=== PATIENT | male | born 1970 | race Caucasian/White ===

== ENCOUNTER → 2017-01-25 | Outpatient (CLI) | payer OTHER ==
[~2017-01-25] MED LIST: FLUO20CA35 PO; LAMO200T38 PO; LISI-725 PO; METO50TA7 PO; PRAV20TA PO; PRLSR20 PO
[2017-01-25 13:05] LABS: BASO % 0.4 %; BASO ABS # 0.02 K/uL (0-0.2); COMPLETE YES; EOS % 1.7 %; HEMATOCRIT 43.5 % (42-52); IG% 0.2 %; LYMPH % 20.3 %; LYMPH ABS # 0.98 K/uL (1.2-3.4); MEAN CELL VOLUME 95.2 fL (80-100); MEAN CORPUSCULAR HEMOGLOBIN 33.5 pg (25-34); MEAN CORPUSCULAR HGB CONC 35.2 g/dl (32-36); MEAN PLATELET VOLUME 10.2 fL (7.4-10.4); MONO % 13.7 %; NEUT % 63.7 %; PLATELET COUNT 177 K/uL (130-400); RED BLOOD COUNT 4.57 M/uL (4.7-6.1); WHITE BLOOD COUNT 4.82 K/uL (4.8-10.8)
[2017-01-25 13:14] LABS: ESTIMATED AVERAGE GLUCOSE 94 mg/dl; HA1C FLAG Normal (Normal)
[2017-01-25 13:32] LABS: ALT/SGPT 35 U/L (12-78); AST/SGOT 29 U/L (15-37); BLOOD UREA NITROGEN 10 mg/dl (7-18); BUN/CREATININE RATIO 11.3 (10-20); CALCIUM 8.8 mg/dl (8.5-10.1); CARBON DIOXIDE 24 mmol/L (21-32); CHLORIDE 102 mmol/L (98-107); CHOLESTEROL 217 mg/dl (0-200); CREATININE 0.87 mg/dl (0.60-1.40); GLUCOSE 95 mg/dl (70-99); POTASSIUM 4.1 mmol/L (3.5-5.1); SODIUM 136 mmol/L (136-145); TRIGLYCERIDES 334 mg/dl (0-150); VERY LOW DENSITY LIPOPROT CALC 67 mg/dl
[2017-01-25 13:35] LABS: ALB/GLOB RATIO 0.8 (0.9-2); ALKALINE PHOSPHATASE 103 U/L (45-117); CHOLESTEROL/HDL RATIO 2.9; HDL CHOLESTEROL 75 mg/dl
== END | disposition home or self-care (01) ==
LOC: C.LABSPEC 12:21
PROVIDERS: ATTEND Internal Medicine
DX: Z00.01 Encounter for general adult medical examination with abnormal findings (principal); E78.5 Hyperlipidemia, unspecified; R73.9 Hyperglycemia, unspecified; I10 Essential (primary) hypertension

== ENCOUNTER → 2017-10-05 | Outpatient (CLI) | payer OTHER ==
[~2017-10-05] MED LIST changes: +LAMO200T35 PO; -LAMO200T38 PO; -METO50TA7 PO; +METO50TA8 PO
--- NOTE | 2017-10-05 18:01 | EXERCISE STRESS ECHO ---
*NOTICE TO RECEIVING DEMOCRAT AGENCY This information is strictly Confidential and protected under [place] law. [place] law prohibits you from making any further disclosure of this information unless further disclosure is expressly permitted by the written consent of the person to whom it pertains or is authorized by law. A general authorization for the release of medical or other information is not sufficient for this purpose. Hospital accepts no responsibility if the information is made available to any other person, INCLUDING THE PATIENT. Interpretation Summary * Name: KRYSTLE SANABRIA Study Date: 10/05/2017 09:41 AM BP: 165/105 mmHg * Patient Location: [facility] HR: 66 * : 1970 (M/d/yyyy) Gender: Male Height: 74 in * Age: 46 yrs Ethnicity: [place] Weight: 220 lb * Ordering Physician: Edin Palmer * Referring Physician: Edin Palmer * Performed By: Dena Hanna RCS * * Reason For Study: CHEST PAIN * BSA: 2.3 m2 * -- Conclusions -- * 1. Negative exercise stress echo for ischemia at 88% MPHR. * 2. Negative exercise ECG. * 3. Average functional capacity for age. Exercised 10:05, achieving 11.8 METS. * 4. Normal hemodynamic response to exercise. No exercise induced chest pain. * 5. Normal resting LV size and function. Mild concentric LVH. Mild aortic regurgitation. Procedure Details * ECHOEX, CPT #[id number] * ECHO COLOR FLOW, CPT #[id number] * ECHO DOPPLER, CPT #[id number] Left Ventricle * The left ventricle is grossly normal size. * There is mild concentric left ventricular hypertrophy. * Ejection Fraction = 60-65%. * The left ventricular ejection fraction increases normally with stress. The left ventricular end-systolic cavity size reduces post-stress (normal response). The left ventricular wall motion with stress is normal. Right Ventricle * The right ventricle is grossly normal size. * The right ventricular systolic function is normal as assessed by tricuspid annular plane systolic excursion (TAPSE) (normal >1.5 cm). Atria * The left atrial size is normal. * Right atrial size is normal. Mitral Valve * The mitral valve is grossly normal. * There is no mitral valve stenosis. * There is trace mitral regurgitation. Tricuspid Valve * There is trace tricuspid regurgitation. Aortic Valve * The aortic valve opens well. * The aortic valve is trileaflet. * Aortic valve sclerosis mild, without significant aortic valvular stenosis. * No hemodynamically significant valvular aortic stenosis. * Mild aortic regurgitation. Pulmonic Valve * The pulmonary valve is inadequately visualized, but the Doppler data is adequate for interpretation. * Trace pulmonic valvular regurgitation. Great Vessels * The aortic root and proximal ascending aorta are normal sized. Pericardium * There is no pericardial effusion. Stress Parameters * The stress portion of this study was personally supervised by the undersigned interpreting physician. * Rest heart rate was '66' BPM. * Rest blood pressure was '165/105' * Maximum heart rate achieved was 153 bpm. * Maximum heart rate was 88 % of maximum age-predicted heart rate. * Maximum blood pressure was '209/109' * Total exercise time was '10:05' * Maximum exercise MET level achieved was '11.80' METS * Maximum treadmill speed was '4.20' miles per hour. * Maximum treadmill elevation was '16.00'% grade. Left Ventricular Findings with Stress * The study was technically good with many images being of high quality. MMode 2D Measurements and Calculations IVSd 1.4 cm IVSs 1.7 cm LVIDd 4.2 cm LVIDs 3.2 cm LVPWd 1.6 cm LVPWs 1.6 cm IVS/LVPW 0.89 FS 23.1 % EDV(Teich) 77.9 ml ESV(Teich) 41.6 ml EF(Teich) 46.6 % EDV(cubed) 73.3 ml ESV(cubed) 33.4 ml EF(cubed) 54.4 % % IVS thick 23.0 % % LVPW thick 1.4 % LV mass(C)d 246.5 grams LV mass(C)dI 108.9 grams/m\S\2 LV mass(C)s 206.9 grams LV mass(C)sI 91.4 grams/m\S\2 SV(Teich) 36.3 ml SI(Teich) 16.0 ml/m\S\2 SV(cubed) 39.9 ml SI(cubed) 17.6 ml/m\S\2 Ao root diam 3.7 cm Ao root area 10.7 cm\S\2 ACS 2.5 cm LA dimension 3.5 cm LA/Ao 0.96 LVOT diam 2.1 cm LVOT area 3.6 cm\S\2 LVAd ap4 38.5 cm\S\2 LVLd ap4 8.8 cm EDV(MOD-sp4) 136.6 ml EDV(sp4-el) 142.6 ml LVAs ap4 26.0 cm\S\2 LVLs ap4 7.5 cm ESV(MOD-sp4) 76.4 ml ESV(sp4-el) 76.2 ml EF(MOD-sp4) 44.1 % EF(sp4-el) 46.6 % LVAd ap2 38.6 cm\S\2 LVLd ap2 8.8 cm EDV(MOD-sp2) 137.9 ml EDV(sp2-el) 144.6 ml LVAs ap2 24.7 cm\S\2 LVLs ap2 7.3 cm ESV(MOD-sp2) 68.8 ml ESV(sp2-el) 71.1 ml EF(MOD-sp2) 50.1 % EF(sp2-el) 50.8 % LVLd %diff -0.75 % EDV(MOD-bp) 137.7 ml LVLs %diff -3.70 % ESV(MOD-bp) 72.1 ml EF(MOD-bp) 47.6 % SV(MOD-sp4) 60.3 ml SI(MOD-sp4) 26.6 ml/m\S\2 SV(MOD-sp2) 69.1 ml SI(MOD-sp2) 30.5 ml/m\S\2 SV(MOD-bp) 65.5 ml SI(MOD-bp) 29.0 ml/m\S\2 SV(sp4-el) 66.4 ml SI(sp4-el) 29.3 ml/m\S\2 SV(sp2-el) 73.5 ml SI(sp2-el) 32.5 ml/m\S\2 Doppler Measurements and Calculations MV E max randal 91.1 cm/sec MV A max randal 66.3 cm/sec MV E/A 1.4 MV P1/2t max randal 99.2 cm/sec MV P1/2t 68.4 msec MVA(P1/2t) 3.2 cm\S\2 MV dec slope 424.9 cm/sec\S\2 MV dec time 0.16 sec Ao V2 max 93.2 cm/sec Ao max PG 3.5 mmHg Ao max PG (full) 0.27 mmHg SUE(V,A) 3.4 cm\S\2 SUE(V,D) 3.4 cm\S\2 LV V1 max PG 3.2 mmHg LV V1 max 89.5 cm/sec PA V2 max 91.5 cm/sec PA max PG 3.3 mmHg TR max randal 244.2 cm/sec
== END | disposition home or self-care (01) ==
LOC: C.CPL 09:29
PROVIDERS: ATTEND Internal Medicine
DX: R07.9 Chest pain, unspecified (principal)